=== PATIENT | female | born 1980 | race Caucasian/White ===

== ENCOUNTER → 2016-12-02 | Outpatient (CLI) | payer BC ==
[~2016-12-02] MED LIST: TRM50T PO
--- OUTSIDE RECORDS SUMMARY | 2016-12-02 11:45 | XMS REPORT | Continuity of Care Document ---
Demographics Preferred Language Unknown Marital Status Unknown Judaism Affiliation Unknown Race Unknown Ethnic Group Unknown Author Author [facility] Address Unknown Phone Unavailable Allergies Medications Problems Date Dx Coded Attending Type Code Diagnosis Diagnosed By 03/07/2013 V73.81 HPV SCREENING 03/07/2013 V74.5 STD SCREEN 03/07/2013 V76.10 BREAST CANCER SCREENING 03/07/2013 V76.2 CERVICAL CANCER SCREENING (PAP SMEAR) Procedures Code [place] [id number] TRICHOMONAS (IN-HOUSE) 03/07/2013 21129 CULTURE UROGENITAL 03/10/2013 07205 PAP SMEAR 2012 19739 GC/CHLAM PROBE (STATE) 03/11/2013 Q0091 PAP SMEAR OBTAIN SMEAR 03/11/2013 Results Encounters ACCT No. Visit Date/Time Discharge Status Pt. Type Provider Facility Loc./Unit Complaint [id number] 03/07/2013 14:48:00 Document Registration
[2016-12-02 12:01] LABS: BASOPHILS % (AUTO) 0 % (0-10); EOSINOPHILS # (AUTO) 0.2 10^3/uL (0.0-0.3); EOSINOPHILS % (AUTO) 3 % (0-10); LYMPHOCYTES # (AUTO) 1.9 X 10^3 (1.0-4.0); LYMPHOCYTES % (AUTO) 28 % (12-44); MEAN CORPUSCULAR HEMOGLOBIN 32 PG (25-34); MEAN CORPUSCULAR HGB CONC 35 G/DL (32-36); MEAN CORPUSCULAR VOLUME 90 FL (80-99); MEAN PLATELET VOLUME 9.6 FL (7.4-10.4); MONOCYTES # (AUTO) 0.4 X 10^3 (0.0-1.0); MONOCYTES % (AUTO) 6 % (0-12); NEUTROPHILS # (AUTO) 4.4 X 10^3 (1.8-7.8); NEUTROPHILS % (AUTO) 63 % (42-75); PLATELET COUNT 261 10^3/uL (130-400); RED BLOOD COUNT 4.92 10^6/uL (4.35-5.85); RED CELL DISTRIBUTION WIDTH 11.7 % (10.0-14.5)
[2016-12-02 12:23] LABS: ALANINE AMINOTRANSFERASE 17 U/L (0-55); ALBUMIN 3.6 G/DL (3.2-4.5); ANION GAP 7 MMOL/L (5-14); ASPARTATE AMINO TRANSFERASE 13 U/L (5-34); BILIRUBIN,TOTAL 0.5 MG/DL (0.1-1.0); BLOOD UREA NITROGEN 10 MG/DL (7-18); BUN/CREATININE RATIO 12; CALCIUM 8.9 MG/DL (8.5-10.1); CARBON DIOXIDE 25 MMOL/L (21-32); CHLORIDE 107 MMOL/L (98-107); CHOLESTEROL 206 MG/DL (< 200); CREATININE SERUM 0.83 MG/DL (0.60-1.30); DIRECT LDL 147 MG/DL (1-129); GFR ESTIMATED > 60; GLUCOSE 80 MG/DL (70-105); SODIUM 139 MMOL/L (135-145); TOTAL PROTEIN 7.2 G/DL (6.4-8.2); TRIGLYCERIDES 112 MG/DL (<150); VLDL CHOLESTEROL 22 MG/DL (5-40)
[2016-12-02 12:45] LABS: THYROID STIMULATING HORMONE 1.58 UIU/ML (0.35-4.94)
== END ==
LOC: LAB 11:41
PROVIDERS: ATTEND Nurse Practitioner Family
DX: R53.83 Other fatigue (principal); L65.9 Nonscarring hair loss, unspecified; R63.1 Polydipsia
CPT/HCPCS: 36415; 80053; 80061; 84439; 84443; 84480; 85025

== ENCOUNTER → 2016-12-19 | Outpatient (CLI) | payer BC ==
--- NOTE | 2016-12-19 18:32 | Diagnostic Imaging Report ---
PROCEDURE: US Thyroid. TECHNIQUE: Multiple real-time grayscale images were obtained of the thyroid in various projections. INDICATION: Dyspnea. FINDINGS: The right thyroid lobe is 4.5 x 1.4 x 1.4 cm. The left lobe is 4.7 x 1.5 x 1.6 cm. In the inferior aspect of the right thyroid lobe there is a 0.6 x 0.7 x 0.4 cm nodule with solid and cystic components. In the thyroid isthmus, there is a 0.6 x 0.6 x 0.5 cm hypoechoic nodule with no significant internal vascularity seen. IMPRESSION: 1. Nonspecific 0.6 cm nodule in the inferior aspect of the right lobe and thyroid isthmus. 2. Multinodular goiter. Dictated by: Dictated on workstation # [id number]
== END ==
LOC: RAD 14:00
PROVIDERS: ATTEND Nurse Practitioner Family
DX: R13.10 Dysphagia, unspecified (principal); R53.83 Other fatigue
CPT/HCPCS: 76536

== ENCOUNTER 2017-02-02 13:00 | Outpatient (CLI) | payer BC | END 2017-02-02 13:32 | disposition home or self-care (01) | LOC: SLEEP 13:00 | PROVIDERS: ATTEND Otolaryngology Otolaryngology/Facial Plastic Surgery | DX: G47.33 Obstructive sleep apnea (adult) (pediatric) (principal) ==

== ENCOUNTER → 2017-07-11 | Outpatient (CLI) | payer BC, OTHER ==
--- NOTE | 2017-07-11 09:13 | Diagnostic Imaging Report ---
Right breast ultrasound. INDICATION: Mass felt by the doctor in the right breast. FINDINGS: There is a lobulated hypoechoic homogeneous oval mass wider than tall seen in the right breast at 2 o'clock position, 7 cm from the nipple. It measures 1.7 x 1.2 x 1.7 cm. No internal vascularity demonstrated with color Doppler. The four quadrants and retroareolar region of the right breast demonstrate no other abnormality. IMPRESSION: A 1.7-cm circumscribed mass in the right breast is favored to be a fibroadenoma. This can be confirmed with an ultrasound-guided biopsy, or followed with serial ultrasounds starting at six month interval to ensure stability. The mass is located at 2 o'clock zone 7 cm from the nipple. It projects in a more inferior location on the mammogram; however, this is believed to be the same mass with positional changes between the different modalities. The findings and recommendations were discussed personally with the patient just before this dictation. ACR BI-RADS Category 4A: Low suspicion of malignancy. Result letter will be mailed to the patient. Note: At least 10% of breast cancer is not imaged by mammography. Dictated by: Dictated on workstation # [id number]
--- NOTE | 2017-07-11 21:13 | Diagnostic Imaging Report ---
Bilateral diagnostic mammogram with tomography. The current study was also evaluated with a Computer Aided Detection (CAD) system. COMPARISON: No prior studies are available for comparison. INDICATION: Palpable lump in the right breast. FINDINGS: There is a 1.5 cm lobulated oval mass seen in the medial aspect of the right breast. This has features in favor of a benign etiology such as a cyst or fibroadenoma. The left breast demonstrates background scattered fibroglandular densities with no mass, architectural distortion, or suspicious cluster of calcifications. IMPRESSION: 1.5 cm lobulated mass in the medial aspect of the right breast with likely benign etiology based on its appearance. Ultrasound evaluation pending. ACR BI-RADS Category 0: Incomplete. (Needs additional imaging evaluation). Result letter will be mailed to the patient. Note: At least 10% of breast cancer is not imaged by mammography. Dictated by: Dictated on workstation # [id number]
== END ==
LOC: RAD 07:52
PROVIDERS: ATTEND Nurse Practitioner Primary Care
DX: D24.1 Benign neoplasm of right breast (principal)
CPT/HCPCS: 76641; 77066

== ENCOUNTER → 2017-07-25 | Outpatient (CLI) | payer BC ==
[~2017-07-25] VITALS: Ht 157.5 cm; Wt 81.6 kg
[~2017-07-25] MED LIST changes: +LIDOCAINE 1% INJ 20 ML (XYLOCAINE) VIAL INJ ONE
[2017-07-25 08:37] VITALS: BP 124/71
[2017-07-25 09:09] VITALS: BP 129/80
--- NOTE | 2017-07-25 11:24 | Diagnostic Imaging Report ---
EXAMINATION: Vacuum-assisted ultrasound-guided biopsy of breast mass right. A metallic clip placed to kaylyn biopsy site. INDICATION: Right breast mass. CONSENT: Informed consent was obtained from the patient. The risks, benefits, potential complications and alternatives were reviewed and all questions answered to the patient's satisfaction. FINDINGS: Ultrasound images demonstrate right breast mass at 1:30 o'clock position, 7 CM from the nipple. PROCEDURE: After sterile preparation and draping, 1% lidocaine was utilized for local anesthesia. A vacuum-assisted biopsy device with 14-gauge needle was introduced under live ultrasound guidance into the lesion. Good needle position was documented with ultrasound images. A metallic clip was placed to kaylyn the site of the biopsy. A subsequent mammogram is performed and confirms the proper positioning of the clip. Multiple samples were obtained and sent to pathology. The patient tolerated the procedure well with no immediate complications. IMPRESSION: Successful ultrasound-guided biopsy of 1:30 o'clock position right breast mass. A metallic clip placed to kaylyn biopsy site. Dictated by: Dictated on workstation # [id number]
--- NOTE | 2017-07-25 14:15 | Diagnostic Imaging Report ---
EXAMINATION: CC and lateral views of the right breast were performed. INDICATION: Documentation of clip position after ultrasound-guided biopsy. FINDINGS: The clip is placed and projects at the lateral aspect of the nodule within the medial aspect of the right breast. IMPRESSION: Satisfactory clip position along the lateral aspect of the medial right breast nodule. The Pathology results are pending. Dictated by: Dictated on workstation # [id number]
== END ==
LOC: RAD 08:14
PROVIDERS: ATTEND Nurse Practitioner Primary Care
DX: N63.10 Unspecified lump in the right breast, unspecified quadrant (principal)
CPT/HCPCS: 19083

== ENCOUNTER → 2018-01-01 | Outpatient (CLI) | payer BC ==
[~2018-01-01] MED LIST changes: -LIDOCAINE 1% INJ 20 ML (XYLOCAINE) VIAL INJ ONE
--- NOTE | 2018-01-01 09:49 | Diagnostic Imaging Report ---
INDICATION: Thyroid nodule, followup TECHNIQUE: Grayscale sonographic images of the thyroid gland. CORRELATION STUDY: 12/19/2016 FINDINGS: RIGHT LOBE: 4.7 x 1.8 x 1.4 cm. Mixed but predominantly slightly hypoechoic solid nodule inferior, the right lobe measures 7 x 8 x 4 mm, previously 6 x 7 x 4 mm. Vascular flow is present. LEFT LOBE: 5.6 x 1.3 x 1.4 cm. There is normal echotexture about the left lobe. Slightly hypoechoic but solid nodule of the isthmus measures 5 x 4 x 6 mm, previously 6 x 6 x 6 mm. IMPRESSION: Small, subcentimeter nodule of the right lobe and isthmus, overall generally stable. (Normal gland size: 4-5 x 2 x 2 cm) Dictated by: Dictated on workstation # [id number]
== END ==
LOC: RAD 08:00
PROVIDERS: ATTEND Otolaryngology Otolaryngology/Facial Plastic Surgery
DX: E04.2 Nontoxic multinodular goiter (principal)
CPT/HCPCS: 76536

== ENCOUNTER 2018-07-30 05:45 | Outpatient (CLI) | payer BC ==
[~2018-07-30] VITALS: Ht 157.5 cm; Wt 81.6 kg
[2018-07-30] MEDS ORDERED: BUPR150T14 PO (10:59)
[2018-07-30] MEDS ORDERED: CETI10TA17 PO (10:59)
[2018-07-30] MEDS ORDERED: FAMO20TA3 PO (10:59)
== END 2018-07-30 11:03 | disposition home or self-care (01) ==
LOC: PREOP 05:45
PROVIDERS: ATTEND Surgery
DX: Z01.818 Encounter for other preprocedural examination (principal)

== ENCOUNTER 2018-08-06 10:42 | Day surgery (SDC) | payer BC ==
[~2018-08-06] VITALS: Ht 157.5 cm; Wt 81.6 kg
[~2018-08-06 10:42] MED LIST changes: +BUPR150T14 PO; +CETI10TA17 PO; +FAMO20TA3 PO
--- OUTSIDE RECORDS SUMMARY | 2018-08-06 10:46 | XMS REPORT | Continuity of Care Document ---
Demographics Preferred Language Unknown Marital Status Unknown Rastafarian Affiliation Unknown Race Unknown Ethnic Group Unknown Author Author [facility] Address Unknown Phone Unavailable Allergies There is no data. Medications There is no data. Problems Date Dx Coded Attending Type Code Diagnosis Diagnosed By 03/07/2013 V73.81 HPV SCREENING 03/07/2013 V74.5 STD SCREEN 03/07/2013 V76.10 BREAST CANCER SCREENING 03/07/2013 V76.2 CERVICAL CANCER SCREENING (PAP SMEAR) Procedures Code Description [place] [id number] TRICHOMONAS (IN-HOUSE) 03/07/2013 21125 CULTURE UROGENITAL 03/10/2013 54644 PAP SMEAR 03/11/2013 38714 GC/CHLAM PROBE (STATE) 03/11/2013 Q0091 PAP SMEAR OBTAIN SMEAR 03/11/2013 Results There is no data. Encounters ACCT No. Visit Date/Time Discharge Status Pt. Type Provider Facility Loc./Unit Complaint [id number] 03/07/2013 14:48:00 Document Registration
[2018-08-06] MEDS ORDERED: LACTATED RINGERS 1,000 ML IV STA (11:00)
[2018-08-06] MEDS ORDERED: HURRICAINE EXT TUBE (BENZOCAINE) XX PRN (11:00)
[2018-08-06] MEDS ORDERED: LACTATED RINGERS 1,000 ML IV ONE (11:09)
--- NOTE | 2018-08-06 11:26 | Progress Note-Pre Operative ---
Pre-Operative Progress Note H&P Reviewed The H&P was reviewed, patient examined and no changes noted. Time Seen by Provider: 11:23 Date H&P Reviewed: Aug 06, 2018 Time H&P Reviewed: 11:24 Pre-Operative Diagnosis: Chronic Gastritis, Upper abd pain ANDRY SMITH DO Aug 06, 2018 11:26
[2018-08-06 11:53] VITALS: BP 124/94
[2018-08-06] MEDS ORDERED: proPOfol 200 MG/20 ML (DIPRIVAN) VIAL IV ONE (11:55)
[2018-08-06] MEDS ORDERED: MIDAZOLAM 2 MG/2 ML (VERSED) VIAL ONE (11:55)
[2018-08-06] MEDS ORDERED: LIDOCAINE PF 2% 5 ML (XYLOCAINE) VIAL ONE (11:56)
[2018-08-06 12:25] VITALS: BP 87/54
[2018-08-06 12:55] VITALS: BP 114/73
--- NOTE | 2018-08-06 13:10 | Progress Note-Post Operative ---
Post-Operative Progess Note Surgeon (s)/Human Resources Psychologist (s) Surgeon ANDRY SMITH DO Human Resources Psychologist: none Pre-Operative Diagnosis Chronic Gastritis, Upper abd pain Post-Operative Diagnosis Same plus Hiatal hernia Procedure & Operative Findings Date of Procedure 08/06/18 Procedure Performed/Findings EGD with biopsy Anesthesia Type IV sedation by PRODUCT MARKETING ENGINEER Estimated Blood Loss Estimated blood loss (mL): scant Specimens/Packing Specimens Removed duodenal bx antral bx GE jxn bx ANDRY SMITH DO Aug 06, 2018 13:10
--- NOTE | 2018-08-06 13:12 | Endoscopy Discharge Instruct ---
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 This is due to the medicine you received to relax you. Until tomorrow, you should: NOT drive a car, operate machinery or power tools. NOT drink any alcoholic beverages. NOT make any important decisions or sign importortant papers. Do not return to work until tomorrow, unless otherwise instructed. Resume previous activities tomorrow. Diet: Start by taking liquids. If you tolerate liquids, advance to solid food. make appointment for one week Notify Physician - If you experience excessive bleeding, unusual abdominal pain, fever, or chest pain, contact your doctor immediately. Follow-Up: - I have received and understand the above instructions and will call my doctor if I have any further questions. Patient Signature Date Nurse Signature Other (Relationship) ANDRY SMITH DO Aug 06, 2018 13:12
--- NOTE | 2018-08-06 13:20 | Anesthesia-General Post-Op ---
MAC Patient Condition Mental Status/LOC: Same as Preop Cardiovascular: Satisfactory Nausea/Vomiting: Absent Respiratory: Satisfactory Pain: Controlled Complications: Absent Post Op Complications Complications None Follow Up Care/Instructions Patient Instructions None needed. Anesthesiology Discharge Order Discharge Order Patient is doing well, no complaints, stable vital signs, no apparent adverse anesthesia problems. No complications reported per nursing. CHRIST ISAAC CRNA Aug 06, 2018 13:20
[2018-08-06 13:23] VITALS: BP 114/73
--- NOTE | 2018-08-07 02:31 | OPERATIVE REPORT ---
DATE OF SERVICE: PREOPERATIVE DIAGNOSES: Gastritis and upper abdominal pain. POSTOPERATIVE DIAGNOSES: Gastritis, hiatal hernia, possible duodenitis. PROCEDURE: EGD with biopsy. SURGEON: Bhaskar Damon DO. MULE TENDER: None. ANESTHESIA: IV sedation by ERP BUSINESS ANALYST. SPECIMEN: Duodenal biopsy, antral biopsy and GE junction biopsy. BLOOD LOSS: Scant. FLUIDS: Per anesthesia. POSTOPERATIVE CONDITION: Stable. INDICATION FOR PROCEDURE: The patient is a 37-year-old female who has been having some upper abdominal pain with some chronic gastritis and needed a workup. FINDINGS: The patient had duodenitis, gastritis and hiatal hernia. PROCEDURE NOTE: After informed consent was obtained, the patient was brought to the endoscopy suite, placed in the bed in left lateral decubitus position. She was administered IV sedation by the ERP BUSINESS ANALYST who then monitored her vitals the entire time, heart rate, blood pressure and pulse ox and the scope was inserted down the mouth through the esophagus into the stomach, saw some gastritis, pushed in the antrum. Pushed through to the first portion of duodenum, looked like little bit of duodenitis, did a biopsy here, pulled back into the antrum, did another biopsy of the antrum to rule out H. pylori. Retroflexed the scope, saw hiatal hernia, took a picture of this and then pulled back into the GE junction, looked like some minimal creeping up of the GE junction, did a biopsy here and then at this point suctioned the air out of the stomach and then pulled the scope up the esophagus and out the mouth. The patient tolerated procedure. She was recovered in the endoscopy suite. Job ID: [id number] DocumentID: [id number] Dictated Date: 08/06/2018 16:02:04 [employer]p [employer] Date: 08/07/2018 02:30:41 Dictated By: BHASKAR DAMON DO
== END 2018-08-06 13:23 | disposition home or self-care (01) ==
LOC: ENDO 10:42
PROVIDERS: ATTEND Surgery
DX: K29.50 Unspecified chronic gastritis without bleeding (principal); K44.9 Diaphragmatic hernia without obstruction or gangrene; K21.9 Gastro-esophageal reflux disease without esophagitis; F41.9 Anxiety disorder, unspecified; F32.9 Major depressive disorder, single episode, unspecified; Z79.899 Other long term (current) drug therapy
CPT/HCPCS: 84703

== ENCOUNTER → 2019-09-23 | Outpatient (CLI) | payer BC, OTHER ==
--- NOTE | 2019-09-23 13:20 | Diagnostic Imaging Report ---
INDICATION: Routine screening. Comparison is made with prior mammogram from 07/11/2017. 2-D and 3-D bilateral screening mammography was performed with CAD. Scattered fibroglandular densities are identified bilaterally. A lobulated mass in the medial right breast appears to be increased in size since prior exam. This has been previously biopsied and shown to represent a fibroadenoma. Smaller circumscribed nodules in the outer portions of both breasts are noted. No new mass is identified. No malignant appearing macrocalcifications are seen. Axillae are unremarkable. IMPRESSION: Lobulated circumscribed mass in the inner right breast has increased in size. This is a biopsy-proven fibroadenoma. Ultrasound could be performed to provide more accurate measurement and comparison with prior ultrasounds and would be recommended. BI-RADS Category 0 ACR BI-RADS Category 0: Incomplete. (Needs additional imaging evaluation). Result letter will be mailed to the patient. Note: At least 10% of breast cancer is not imaged by mammography. Dictated by: Dictated on workstation # [id number]
== END ==
LOC: RAD 10:01
PROVIDERS: ATTEND Nurse Practitioner Primary Care
DX: Z12.31 Encounter for screening mammogram for malignant neoplasm of breast (principal); D24.1 Benign neoplasm of right breast
CPT/HCPCS: 77067

== ENCOUNTER → 2019-10-14 | Outpatient (CLI) | payer BC ==
--- NOTE | 2019-10-14 11:25 | Diagnostic Imaging Report ---
INDICATION: Right breast mass. COMPARISON: Correlation is made with the screening study from 09/23/2019. In addition, comparison is made with the prior right breast ultrasound from 07/11/2017. FINDINGS: The circumscribed solid mass at the 1:30 location of the right breast 7 cm from the nipple is again noted. This has increased in size measuring 2.6 x 1.5 x 2.4 cm compared with 1.7 x 1.2 x 1.7 cm on the study from 07/11/2017. No additional mass is seen. IMPRESSION: Enlarging right breast mass, most consistent with an enlarging fibroadenoma. This has been previously biopsied. Surgical consultation or perhaps rebiopsy of the lesion would be recommended as this has increased nearly 1 cm in size over 2 years. ACR BI-RADS Category 3: Probably benign findings. Dictated by: Dictated on workstation # [id number]
== END ==
LOC: RAD 10:28
PROVIDERS: ATTEND Nurse Practitioner Primary Care
DX: N63.10 Unspecified lump in the right breast, unspecified quadrant (principal)

== ENCOUNTER → 2019-10-25 | Outpatient (CLI) | payer BC ==
--- NOTE | 2019-10-25 15:54 | Diagnostic Imaging Report ---
INDICATION: Thyroid nodule, follow up. TECHNIQUE: Grayscale sonographic images of the thyroid gland. CORRELATION STUDY: 01/01/2018. FINDINGS: RIGHT LOBE: 4.9 x 1.6 x 1.8 cm. In the inferior pole of the right lobe is a small subcentimeter hypoechoic nodule. This currently measures 8 x 7 x 5 mm, generally stable, previously at 8 x 7 x 4 mm. LEFT LOBE: 4.9 x 1.3 x 1.7 cm. There is normal echotexture about the left lobe. Hypoechoic nodule within the isthmus, currently measuring 7 x 5 x 5 mm, appearing generally stable, previously 6 x 5 x 4 mm. IMPRESSION: Generally stable appearance about small, subcentimeter nodule of the right lobe and isthmus. (Normal gland size: 4-5 x 2 x 2 cm) Dictated by: Dictated on workstation # [id number]
== END ==
LOC: RAD 14:36
PROVIDERS: ATTEND Nurse Practitioner Family
DX: E04.1 Nontoxic single thyroid nodule (principal)
CPT/HCPCS: 76536

== ENCOUNTER 2019-10-28 05:33 | Outpatient (CLI) | payer BC ==
[~2019-10-28] VITALS: Ht 160 cm; Wt 90.8 kg
[2019-10-30] MEDS ORDERED: ACHD5005 PO (11:49)
== END 2019-10-28 10:08 | disposition home or self-care (01) ==
LOC: PREOP 05:33
PROVIDERS: ATTEND Surgery
DX: Z01.818 Encounter for other preprocedural examination (principal)

== ENCOUNTER → 2020-02-19 | Outpatient (CLI) | payer BC ==
[~2020-02-19] MED LIST changes: +ACHD5005 PO
--- NOTE | 2020-02-19 15:47 | Diagnostic Imaging Report ---
PROCEDURE: US thyroid. TECHNIQUE: Multiple real-time grayscale images were obtained of the thyroid in various projections. INDICATION: Thyroid nodules, follow-up. COMPARISON: Prior thyroid ultrasound from 10/25/2019. FINDINGS: Right lobe of the thyroid measures 4.8 x 1.7 x 1.5 cm and the left lobe measures 4.8 x 1.5 x 1.2 cm. Isthmus is 4 mm in thickness. A nodule in the lower pole right lobe of the thyroid measures 8 mm x 5 mm x 8 mm, stable when compared with prior exam. A nodule within the isthmus measures 6 mm x 5 mm x 5 mm, stable. No new thyroid mass is detected. IMPRESSION: Stable subcentimeter nodules in the right lobe and isthmus when compared with prior exam from 10/25/2019. These are also stable when compared with thyroid ultrasound dated back to 01/01/2018 Dictated by: Dictated on workstation # [id number]
== END ==
LOC: RAD 13:34
PROVIDERS: ATTEND Otolaryngology Otolaryngology/Facial Plastic Surgery
DX: E04.2 Nontoxic multinodular goiter (principal)
CPT/HCPCS: 76536

== ENCOUNTER → 2023-01-09 | Outpatient (CLI) | payer BC ==
[~2023-01-09] MED LIST changes: +BUPR-105 PO; -BUPR150T14 PO
--- NOTE | 2023-01-09 10:33 | Diagnostic Imaging Report ---
PROCEDURE: US Thyroid. TECHNIQUE: Multiple Real-time grayscale images were obtained of the thyroid in various projections. INDICATION: Thyroid carcinoma, status post thyroidectomy in 2020. FINDINGS: Since the prior study from 02/19/2020, the patient has undergone thyroidectomy. No residual recurrent mass or thyroid tissue in the thyroid bed is identified. There is a mildly prominent lymph node in the right neck measuring 1.8 x 1.2 x 1.2 cm. This does demonstrate an echogenic fatty hilum. A borderline lymph node in the left neck is identified measuring 1.5 x 0.8 x 1.3 cm. This also demonstrates an echogenic fatty hilum. No other masses are identified. No fluid collections are detected. IMPRESSION: Status post thyroidectomy. No residual or recurrent neoplasm is identified. There are mildly prominent lymph nodes in the neck bilaterally, particularly on the right. Continued followup would be recommended to show continued stability. Dictated by: Dictated on workstation # [id number]
--- NOTE | 2023-01-09 11:35 | Diagnostic Imaging Report ---
INDICATION: Routine screening. COMPARISON: 09/23/2019 and 07/11/2017. TECHNIQUE: 2D and 3D bilateral screening mammography was performed with CAD. FINDINGS: Both breasts are heterogeneously dense, limiting the sensitivity of mammography. The previously noted dominant mass in the medial right breast has been surgically removed. A mass in the outer portion of the left breast has increased in size since the prior exam. There are new nodules in the upper outer right breast at mid to posterior depth as well as in the retroareolar region of the right breast. No definite spiculated mass is seen. No malignant-appearing microcalcifications are identified. The axillae are unremarkable. IMPRESSION: There has been development of multiple circumscribed nodules bilaterally as described, perhaps new fibroadenomas. Additional views and ultrasound are recommended for further evaluation. ACR BI-RADS Category 0: Incomplete. (Needs additional imaging evaluation). Result letter will be mailed to the patient. Note: At least 10% of breast cancer is not imaged by mammography. Dictated by: Dictated on workstation # [id number]
== END ==
LOC: RAD 07:44
PROVIDERS: ATTEND Family Medicine
DX: Z12.31 Encounter for screening mammogram for malignant neoplasm of breast (principal); N63.20 Unspecified lump in the left breast, unspecified quadrant; N63.10 Unspecified lump in the right breast, unspecified quadrant; Z90.89 Acquired absence of other organs; Z85.850 Personal history of malignant neoplasm of thyroid
CPT/HCPCS: 76536; 77063; 77067

== ENCOUNTER → 2023-01-27 | Outpatient (CLI) | payer BC ==
--- NOTE | 2023-01-27 16:25 | Diagnostic Imaging Report ---
INDICATION: Bilateral breast densities. Patient presents for additional views. COMPARISON: Correlation is made with screening mammogram from 01/09/2023. EXAMINATION: 2D and 3D bilateral diagnostic mammography was performed. This included spot compression CC and ML views as well as conventional 90 degrees lateral views. FINDINGS: Additional views show persistent nodular density in the retroareolar right breast as well as the upper outer right breast as well as the outer portion of the left breast. These may represent cysts or fibroadenomas. These appear to be fairly well-circumscribed. No suspicious microcalcification is seen. IMPRESSION: Persistent densities in both breasts, as described. Further evaluation of these areas with ultrasound is recommended and will be performed today. ACR BI-RADS Category 0: Incomplete. (Needs additional imaging evaluation). Result letter will be mailed to the patient. Note: At least 10% of breast cancer is not imaged by mammography. Dictated on workstation # [id number]
--- NOTE | 2023-01-27 16:27 | Diagnostic Imaging Report ---
INDICATION: Bilateral breast densities. COMPARISON: Correlation is made with the diagnostic mammogram from earlier the same day as well as screening mammogram from 01/09/2023. Right breast: Retroareolar right breast was evaluated. There is a slightly lobulated cystic lesion with internal septations measuring 13 x 5 x 10 mm. No internal vascularity is seen. This likely accounts for the mammographic density. In addition, at the 9:00 location of the right breast, 9 cm from the nipple, there is a rounded complex cyst measuring 6 x 4 x 4 mm. This does contain some internal debris. This likely accounts for the mammographic density. No solid masses are identified. Left breast: Sonographic interrogation of outer left breast does show a solid macrolobulated mass with minimal internal vascularity measuring 12 x 9 x 13 mm. This is 6 to 7 cm from the nipple and likely accounts for the mammographic density. IMPRESSION: BI-RADS Category 4 1. Complex cysts in the retroareolar and outer aspect of the right breast, accounting for the mammographic densities. Follow-up right breast ultrasound in six months is recommended to show continued stability. 2. Solid, macrolobulated mass at the 3:00 location of the left breast, 6 to 7 cm from the nipple, corresponding to the mammographic density. This has shown significant increase in size since prior mammogram dating back to 2019. Features are suggestive of a fibroadenoma; however, tissue sampling would be recommended. This would be amenable to ultrasound-guided core biopsy. ACR BI-RADS Category 4: Suspicious abnormality. Result letter will be mailed to the patient. Note: At least 10% of breast cancer is not imaged by mammography. Dictated on workstation # [id number]
== END ==
LOC: RAD 13:34
PROVIDERS: ATTEND Nurse Practitioner Family
DX: N60.01 Solitary cyst of right breast (principal); N63.25 Unspecified lump in the left breast, overlapping quadrants
CPT/HCPCS: 76642; 77066; G0279; 77062

== ENCOUNTER 2023-02-01 08:28 | Outpatient (CLI) | payer BC ==
[~2023-02-01] VITALS: Ht 160 cm; Wt 114.8 kg
[2023-02-01] MEDS ORDERED: ESCI20TA39 PO (12:43)
[2023-02-01] MEDS ORDERED: OMEP20CA18 PO (12:43)
[2023-02-01] MEDS ORDERED: LEVO13CA4 PO (12:43)
== END 2023-02-01 12:51 | disposition home or self-care (01) ==
LOC: PREOP 08:28
PROVIDERS: ATTEND Surgery
DX: Z01.818 Encounter for other preprocedural examination (principal)

== ENCOUNTER 2023-02-13 11:27 | Day surgery (SDC) | payer BC ==
[~2023-02-13] VITALS: Ht 160 cm; Wt 114.8 kg
[~2023-02-13 11:27] MED LIST changes: +ESCI20TA39 PO; +LEVO13CA4 PO; +OMEP20CA18 PO
[2023-02-13] MEDS ORDERED: LACTATED RINGERS 1,000 ML IV STA (11:34)
--- NOTE | 2023-02-13 11:38 | Progress Note-Pre Operative ---
Pre-Operative Progress Note Date of Available H&P: January 31, 2023 Date H&P Reviewed: February 13, 2023 Time H&P Reviewed: 11:37 History & Physical: H&P Reviewed, Patient Examed, No changes noted Pre-Operative Diagnosis: dysphagia ANDRY SMITH DO February 13, 2023 11:38
[2023-02-13] MEDS ORDERED: HURRICAINE EXT TUBE (BENZOCAINE) XX PRN (11:45)
[2023-02-13 11:55] VITALS: BP 133/98
[2023-02-13] MEDS ORDERED: PROPOFOL INJECTION 50 ML IV ONE (12:15)
[2023-02-13] MEDS ORDERED: MIDAZOLAM 2 MG/2 ML (VERSED) VIAL ONE (12:16)
--- NOTE | 2023-02-13 12:30 | Progress Note-Post Operative ---
Post-Operative Progess Note Surgeon (s)/Coroner'S Juror (s) Surgeon ANDRY SMITH DO Coroner'S Juror: none Pre-Operative Diagnosis dysphagia Post-Operative Diagnosis Gastritis Small sliding Hiatal hernia Procedure & Operative Findings Date of Procedure 02/13/23 Procedure Performed/Findings EGD with biopsy PROCEDURE NOTE: After informed consent was obtained, the patient was brought to the endoscopy suite, placed in bed in left lateral decubitus position. She was administered IV sedation by the BUTTERMAKER HELPER who then monitored vitals the entire time, heart rate, blood pressure and pulse ox and the scope was inserted down the mouth through the esophagus into the stomach. On the way down, I did not see anything that could be causing dysphagia. I pushed into the stomach, pushed past the antrum into the duodenum. Duodenum looked good. Pulled back and did a biopsy of antrum, then retroflexed the scope, saw small sliding hiatal hernia, took a picture of this and then pulled the scope into the GE junction and then did a biopsy. Pushed the scope back into the stomach, suctioned all the air out of the stomach. At this point pulled the scope up the esophagus and out the mouth. The patient tolerated the procedure, and she recovered in endoscopy suite. Anesthesia Type IV sedation by BUTTERMAKER HELPER Estimated Blood Loss Estimated blood loss (mL): scant Specimens/Packing Specimens Removed antral bx GE jxn bx ANDRY SMITH DO February 13, 2023 12:30
[2023-02-13 12:31] VITALS: BP 110/73
--- NOTE | 2023-02-13 12:31 | Endoscopy Discharge Instruct ---
Endo Procedure/Findings Findings 1.: Gastritis 2.: Hiatal Hernia Discharge Instructions - Activity: You might feel a little sleepy until tomorrow. This is due to the medicine you received to relax you. Until tomorrow, you should: NOT drive a car, operate machinery or power tools. NOT drink any alcoholic beverages. NOT make any important decisions or sign importortant papers. Do not return to work until tomorrow, unless otherwise instructed. Resume previous activities tomorrow. Diet: Start by taking liquids. If you tolerate liquids, advance to solid food. 1.: EGD in 3 years 2.: Colonscopy in 5 years Notify Physician - If you experience excessive bleeding, unusual abdominal pain, fever, or chest pain, contact your doctor immediately. Follow-Up: Other Follow up In my office in one week ANDRY SMITH DO February 13, 2023 12:31
[2023-02-13 12:36] VITALS: BP 111/67
[2023-02-13 12:40] VITALS: BP 121/74
--- NOTE | 2023-02-13 12:40 | Anesthesia-General Post-Op ---
MAC Patient Condition Mental Status/LOC: Same as Preop Cardiovascular: Satisfactory Nausea/Vomiting: Absent Respiratory: Satisfactory Pain: Controlled Complications: Absent Post Op Complications Complications None Follow Up Care/Instructions Patient Instructions None needed. Anesthesiology Discharge Order Discharge Order Patient is doing well, no complaints, stable vital signs, no apparent adverse anesthesia problems. No complications reported per nursing. RAY DANIEL CRNA February 13, 2023 12:40
[2023-02-13 13:11] VITALS: BP 121/74
== END 2023-02-13 13:06 | disposition home or self-care (01) ==
LOC: ENDO 11:27
PROVIDERS: ATTEND Surgery
DX: K29.50 Unspecified chronic gastritis without bleeding (principal); K44.9 Diaphragmatic hernia without obstruction or gangrene; K21.00 Gastro-esophageal reflux disease with esophagitis, without bleeding; E66.9 Obesity, unspecified; Z68.41 Body mass index [BMI] 40.0-44.9, adult
CPT/HCPCS: 84703

== ENCOUNTER → 2023-02-16 | Outpatient (CLI) | payer BC ==
[~2023-02-16] VITALS: Ht 160 cm; Wt 102.3 kg
[~2023-02-16] MED LIST changes: +LIDOCAINE 1% INJ 10 ML VIAL INJ ONE
--- NOTE | 2023-02-16 11:18 | Diagnostic Imaging Report ---
INDICATION: Left breast mass. Patient presents for ultrasound guided core biopsy. DETAILS OF THE PROCEDURE: The patient was brought to the sonographic suite and placed on the table in the supine position. Ultrasound imaging of the left breast was performed to evaluate for an appropriate entry site. The left breast was prepped and draped in the usual sterile fashion. A small amount of 1% lidocaine was utilized for local anesthesia. Four core biopsies were obtained of the hypoechoic mass at the 3 o'clock location of the left breast 6 to 7 cm from the nipple utilizing a 14-gauge Achieve needle. A marker clip was then deployed. Hemostasis was obtained using manual compression. The patient tolerated the procedure well and was sent for a post procedure mammogram in satisfactory condition. IMPRESSION: Successful ultrasound-guided core biopsy of the solid nodule at the 3 o'clock location of the left breast 6 to 7 cm from the nipple. Pathology results are currently pending. Dictated by: Dictated on workstation # [id number]
--- NOTE | 2023-02-16 12:03 | Diagnostic Imaging Report ---
INDICATION: Left breast nodule, status post ultrasound-guided biopsy. FINDINGS: Unilateral left 2D and CC and ML mammography was performed after the patient underwent an ultrasound guided biopsy. There is a marker clip within the nodule in the outer aspect of the left breast at mid depth, status post biopsy. IMPRESSION: Clip placement, status post ultrasound-guided left breast biopsy. Dictated by: Dictated on workstation # [id number]
== END ==
LOC: RAD 08:44
PROVIDERS: ATTEND Family Medicine
DX: N63.25 Unspecified lump in the left breast, overlapping quadrants (principal); Z98.890 Other specified postprocedural states
CPT/HCPCS: 19083; 77065; A4648; G0279